=== PATIENT | female | born 1970 | race Caucasian/White ===

== ENCOUNTER 2018-12-30 10:45 | Inpatient (IN) | payer MEDICAID ==
[2018-12-30] MEDS: NICARDipine HCL 30 MG CAPSULE PO ×2 (12:44→14:22)
[2018-12-30] MEDS: ASPIRIN 325 MG TAB PO (12:45)
[2018-12-30] MEDS: hydrALAzine 20 MG INJ IV ×3 (12:45→20:54)
[2018-12-30] MEDS: NITROGLYCERIN 2% 1 GM OINT PKT TD (12:45)
[2018-12-30 12:58] LABS: ADD MAN DIFF? NO
[2018-12-30 12:59] LABS: BASOPHILS % 0.3 % (0.0-2.0); EOSINOPHILS # 0.1 10^3/ul (0.0-0.5); HEMATOCRIT 42.2 % (37.0-47.0); HEMOGLOBIN 13.6 g/dl (12.0-16.0); LYMPHOCYTES # 1.8 10^3/ul (0.8-2.9); LYMPHOCYTES % 18.7 % (15.0-51.0); MEAN CORPUSCULAR HGB CONC 32.2 g/dl (32.0-37.0); MEAN CORPUSCULAR VOLUME 83.9 fl (82.0-101.0); MEAN PLATELET VOLUME 10.2 fl (7.4-10.4); MONOCYTE # 0.6 10^3/ul (0.3-0.9); MONOCYTES % 5.8 % (0.0-11.0); NEUTROPHIL # 7.3 10^3/ul (1.6-7.5); NEUTROPHILS % 73.8 % (39.0-77.0); PLATELET COUNT 242 10^3/UL (140-415); RED BLOOD COUNT 5.03 10^6/ul (4.20-5.40); RED CELL DISTRIBUTION WIDTH 12.5 % (11.5-14.5)
[2018-12-30 12:59] LABS: WHITE BLOOD COUNT 9.8 10^3/ul (4.8-10.8)
[2018-12-30 13:17] LABS: ALANINE AMINOTRANSFERASE 51 IU/L (13-69); ALBUMIN 4.9 g/dl (3.3-4.9); ALBUMIN/GLOBULIN RATIO 1.28; ALKALINE PHOSPHATASE 91 IU/L (42-121); ANION GAP 15 (5-13); ASPARTATE AMINO TRANSFERASE 66 IU/L (15-46); BILIRUBIN,INDIRECT 0.6 mg/dl (0-1.1); BILIRUBIN,TOTAL 0.6 mg/dl (0.2-1.3); BLOOD UREA NITROGEN 11 mg/dl (7-20); CALCIUM 9.8 mg/dl (8.4-10.2); CARBON DIOXIDE 24 mmol/L (21-31); CHLORIDE 100 mmol/L (97-110); CREATININE 0.44 mg/dl (0.44-1.00); Estimated GFR > 60 mL/min (>60); GLUCOSE 222 mg/dl (70-220); POTASSIUM 4.1 mmol/L (3.5-5.1); SODIUM 139 mmol/L (135-144); TOTAL PROTEIN 8.7 g/dl (6.1-8.1)
[2018-12-30 13:29] LABS: B-TYPE NATRIURETIC PEPTIDE 143 PG/ML (0-125); TROPONIN-I < 0.012 ng/ml (0.000-0.120)
[2018-12-30] MEDS ORDERED: ACETAMINOPHEN 325 MG TAB PO (15:30)
[2018-12-30] MEDS ORDERED: ONDANSETRON 4 MG INJ IV (15:30)
[2018-12-30] MEDS ORDERED: DOCUSATE SODIUM 100 MG CAP PO (16:00)
[2018-12-30] MEDS ORDERED: HYDROCODONE/APAP (5/325) TAB PO (16:00)
[2018-12-30] MEDS ORDERED: NACL 0.9% 3 ML SYG IV (16:00)
[2018-12-30] MEDS ORDERED: morphine 2 MG INJ IV (16:00)
[2018-12-30] MEDS ORDERED: MAGNESIUM HYDROXIDE 30ML CUP PO (16:00)
[2018-12-30] MEDS ORDERED: NITROGLYCERIN (SL) 0.4 MG TAB SL (16:00)
[2018-12-30 17:22] LABS: HEMOGLOBIN A1C 10.3 % (0-5.9)
[2018-12-30 17:32] LABS: CREATINE KINASE 50 IU/L (23-200)
[2018-12-30 17:43] LABS: CK INDEX 1.6; TROPONIN-I < 0.012 ng/ml (0.000-0.120)
[2018-12-30] MEDS: ACETAMINOPHEN 325 MG TAB PO (19:33)
[2018-12-30] MEDS: ONDANSETRON 4 MG INJ IV (19:36)
[2018-12-30] MEDS ORDERED: METOPROLOL 5 MG INJ IV (23:00)
[2018-12-30 23:45] LABS: CREATINE KINASE 49 IU/L (23-200)
[2018-12-30 23:59] LABS: CK INDEX 1.7; CK-MB 0.81 ng/ml (0.0-2.4); TROPONIN-I < 0.012 ng/ml (0.000-0.120)
[2018-12-31] MEDS: METOPROLOL 5 MG INJ IV (00:22)
[2018-12-31] MEDS: PANTOPRAZOLE (EC) 40 MG TAB PO (06:28)
[2018-12-31] MEDS: ACETAMINOPHEN 325 MG TAB PO ×2 (06:34→21:10)
[2018-12-31 06:58] LABS: ADD MAN DIFF? NO
[2018-12-31 07:04] LABS: WHITE BLOOD COUNT 12.4 10^3/ul (4.8-10.8)
[2018-12-31 07:04] LABS: BASOPHILS % 0.2 % (0.0-2.0); EOSINOPHILS # 0.1 10^3/ul (0.0-0.5); EOSINOPHILS % 0.4 % (0.0-7.0); HEMATOCRIT 39.2 % (37.0-47.0); HEMOGLOBIN 13.1 g/dl (12.0-16.0); LYMPHOCYTES # 2.2 10^3/ul (0.8-2.9); LYMPHOCYTES % 17.7 % (15.0-51.0); MEAN CORPUSCULAR HEMOGLOBIN 26.6 pg (29.0-33.0); MEAN CORPUSCULAR HGB CONC 33.4 g/dl (32.0-37.0); MEAN CORPUSCULAR VOLUME 79.5 fl (82.0-101.0); MEAN PLATELET VOLUME 10.1 fl (7.4-10.4); MONOCYTE # 0.8 10^3/ul (0.3-0.9); MONOCYTES % 6.5 % (0.0-11.0); NEUTROPHIL # 9.3 10^3/ul (1.6-7.5); NEUTROPHILS % 74.9 % (39.0-77.0); PLATELET COUNT 249 10^3/UL (140-415); RED BLOOD COUNT 4.93 10^6/ul (4.20-5.40); RED CELL DISTRIBUTION WIDTH 12.8 % (11.5-14.5)
[2018-12-31 07:21] LABS: ANION GAP 12 (5-13); BLOOD UREA NITROGEN 8 mg/dl (7-20); CALCIUM 9.5 mg/dl (8.4-10.2); CARBON DIOXIDE 29 mmol/L (21-31); CHLORIDE 96 mmol/L (97-110); CHOL/HDL RATIO 2.7 RATIO; CHOLESTEROL 172 mg/dl (100-200); CREATININE 0.43 mg/dl (0.44-1.00); Estimated GFR > 60 mL/min (>60); GLUCOSE 206 mg/dl (70-220); HDL CHOLESTEROL 62 mg/dl (37-92); LDL CHOLESTEROL,CALCULATED 94 mg/dl; MAGNESIUM 1.7 mg/dl (1.7-2.5); POTASSIUM 3.2 mmol/L (3.5-5.1); SODIUM 137 mmol/L (135-144); TRIGLYCERIDES 82 mg/dl (0-149)
[2018-12-31] MEDS: BENAZEPRIL 20 MG TAB PO ×2 (08:05→20:24)
[2018-12-31] MEDS: ATENOLOL 50 MG TAB PO (08:05)
[2018-12-31] MEDS: ENOXAPARIN 40 MG/0.4 ML SYG SC (08:09)
[2018-12-31] MEDS: INFLUENZA VIRUS VACCINE 0.5 ML (DISPENSING) IM* (08:16)
[2018-12-31] MEDS: POTASSIUM CHLORIDE (SR) 20 MEQ TAB PO (08:51)
[2018-12-31] MEDS ORDERED: BENAZEPRIL 20 MG TAB PO (09:00)
[2018-12-31] MEDS ORDERED: GLUCOSE GEL 15 GRAM TUBE PO ×2 (14:30)
[2018-12-31] MEDS ORDERED: DEXTROSE 50% 50 ML SYRINGE IV ×2 (14:30)
[2018-12-31] MEDS ORDERED: GLUCAGON 1 MG INJ IM (14:30)
[2018-12-31] MEDS ORDERED: GLUCOSE GEL 15 GRAM TUBE BUCCAL (14:30)
[2018-12-31] MEDS: MAGNESIUM SULFATE 2 GM/50 ML 50 ML IVPB (14:37)
[2018-12-31] MEDS: METOPROLOL 50 MG TAB PO ×2 (14:37→20:25)
[2018-12-31] MEDS: AMIODARONE 150MG/D5W BOLUS 100 ML IV (15:09)
[2018-12-31] MEDS: AMIODARONE 900 MG in DEXTROSE 5% 482 ML IV (15:50)
[2018-12-31] MEDS: metFORMIN 500 MG TAB GTB (17:39)
[2018-12-31] MEDS: INSULIN ASPART [NOVOLOG] 3 ML PEN SC ×2 (17:54→22:14)
[2018-12-31] MEDS: HYDROCHLOROTHIAZIDE 12.5 MG CAP PO (20:24)
[2018-12-31] MEDS: APIXABAN 5 MG TABLET PO (20:24)
[2019-01-01] MEDS: PANTOPRAZOLE (EC) 40 MG TAB PO (05:15)
[2019-01-01] MEDS: metFORMIN 500 MG TAB GTB ×2 (07:55→17:13)
[2019-01-01] MEDS: INSULIN ASPART [NOVOLOG] 3 ML PEN SC ×4 (08:14→20:55)
[2019-01-01 08:17] LABS: ANION GAP 9 (5-13); BLOOD UREA NITROGEN 9 mg/dl (7-20); CALCIUM 9.5 mg/dl (8.4-10.2); CARBON DIOXIDE 31 mmol/L (21-31); CHLORIDE 98 mmol/L (97-110); CREATININE 0.57 mg/dl (0.44-1.00); Estimated GFR > 60 mL/min (>60); GLUCOSE 187 mg/dl (70-220); POTASSIUM 3.7 mmol/L (3.5-5.1); SODIUM 138 mmol/L (135-144)
[2019-01-01 08:18] LABS: MAGNESIUM 1.7 mg/dl (1.7-2.5)
[2019-01-01] MEDS: APIXABAN 5 MG TABLET PO ×2 (08:55→20:55)
[2019-01-01] MEDS: HYDROCHLOROTHIAZIDE 12.5 MG CAP PO (08:56)
[2019-01-01] MEDS: METOPROLOL 50 MG TAB PO (08:56)
[2019-01-01] MEDS: BENAZEPRIL 20 MG TAB PO ×2 (08:56→20:54)
[2019-01-01] MEDS: ENALAPRILAT 1.25 MG INJ IV ×2 (11:48→18:01)
[2019-01-01] MEDS ORDERED: ALPRAZOLAM 0.25 MG TAB PO (13:00)
[2019-01-01] MEDS: POTASSIUM CHLORIDE (SR) 20 MEQ TAB PO (13:22)
[2019-01-01] MEDS: DIGOXIN 500 MCG INJ IV (13:23)
[2019-01-01] MEDS: MAGNESIUM SULFATE 2 GM/50 ML 50 ML IVPB (13:26)
[2019-01-01] MEDS: BENAZEPRIL 40 MG TAB PO (13:40)
[2019-01-02] MEDS: PANTOPRAZOLE (EC) 40 MG TAB PO (06:17)
[2019-01-02] MEDS: glipiZIDE 5 MG TAB PO (07:53)
[2019-01-02] MEDS: metFORMIN 500 MG TAB GTB (07:54)
[2019-01-02] MEDS: INSULIN ASPART [NOVOLOG] 3 ML PEN SC (07:59)
[2019-01-02] MEDS: APIXABAN 5 MG TABLET PO (08:43)
[2019-01-02] MEDS: HYDROCHLOROTHIAZIDE 12.5 MG CAP PO (08:45)
[2019-01-02] MEDS: BENAZEPRIL 20 MG TAB PO (08:45)
== END 2019-01-02 12:50 | disposition home or self-care (01) | DRG 313 ==
LOC: TEL 16:18 → E/R 10:45 → TEL 15:20
DX: R07.89 Other chest pain (principal); I48.92 Unspecified atrial flutter; Z68.42 Body mass index [BMI] 45.0-49.9, adult; I16.0 Hypertensive urgency; E66.9 Obesity, unspecified; E11.9 Type 2 diabetes mellitus without complications; I48.91 Unspecified atrial fibrillation; E87.6 Hypokalemia
CPT/HCPCS: 36415; 71045; 80048; 80053; 80061; 82550; 82553; 82962; 83036; 83735; 83880; 84443; 84484; 85025; 90686; 93005; 93306; 96374; 99285-25; G0378